=== PATIENT | female | born 1985 | race African-American/Black ===

== ENCOUNTER 2017-03-13 12:09 | Emergency (ER) | payer MEDICAID ==
[~2017-03-13] VITALS: Ht 157.5 cm; Wt 56.8 kg
[2017-03-13] MEDS ORDERED: KETOROLAC 30 MG/ML VIAL (J1885) IV ONE (13:45)
[2017-03-13] MEDS ORDERED: ONDANSETRON 4MG/2ML VIAL (J2405) IV ONE (13:45)
[2017-03-13 14:31] LABS: BASO % 0.8 % (0.0-1.0); EOS # 0.2 K/mm3 (0.0-0.50); EOS % 3.5 % (0.0-3.0); LARGE UNSTAINED CELL # 0.1 K/mm3 (0.0-0.4); LARGE UNSTAINED CELL % 1.9 % (0.0-4.0); LYMPH # 1.9 K/mm3 (1.5-4.5); LYMPH % 32.9 % (24.0-44.0); MEAN CORPUSCULAR HEMOGLOBIN 26.6 pg (27.0-33.0); MEAN CORPUSCULAR HGB CONC 31.6 g/dl (32.0-36.5); MEAN CORPUSCULAR VOLUME 84.2 fl (80.0-96.0); MONO # 0.3 K/mm3 (0.0-0.8); NEUTROPHILS % 54.9 % (36.0-66.0); PLATELET COUNT, AUTOMATED 285 k/mm3 (150-450); RED CELL DISTRIBUTION WIDTH 13.8 % (11.5-14.5); WHITE BLOOD COUNT 5.4 K/mm3 (4.0-10.0)
[2017-03-13 14:36] LABS: CONTROL LINE HCG INT CTR LINE PRESENT
[2017-03-13 14:38] LABS: INR 0.93
[2017-03-13 14:50] LABS: ALBUMIN 4.2 GM/DL (3.2-5.2); ALBUMIN/GLOBULIN RATIO 1.05 (1.00-1.93); ALKALINE PHOSPHATASE 62 U/L (45-117); ALT/SGPT 28 U/L (12-78); AMYLASE 95 U/L (25-115); ANION GAP 5 MEQ/L (8-16); AST/SGOT 21 U/L (15-37); BILIRUBIN,DIRECT 0.1 MG/DL (0.0-0.2); BILIRUBIN,TOTAL 0.4 MG/DL (0.2-1.0); BLOOD UREA NITROGEN 13 MG/DL (7-18); CALCIUM LEVEL 9.3 MG/DL (8.5-10.1); CARBON DIOXIDE LEVEL 30 MEQ/L (21-32); CHLORIDE LEVEL 105 MEQ/L (98-107); CREATININE FOR GFR 0.73 MG/DL (0.55-1.02); GLOMERULAR FILTRATION RATE > 60.0 (>60); GLUCOSE, FASTING 63 MG/DL (70-105); POTASSIUM SERUM 3.5 MEQ/L (3.5-5.1); SODIUM LEVEL 140 MEQ/L (136-145); TOTAL PROTEIN 8.2 GM/DL (6.4-8.2)
[2017-03-13] MEDS ORDERED: ISOVUE-370 76% 100ML VIAL (Q9967) As Ordered ONE (14:53)
[2017-03-13] MEDS ORDERED: ULTR50TA8 PO (15:38)
[2017-03-13 15:42] VITALS: BP 115/82
--- NOTE | 2017-03-13 15:49 | REP ---
CT abdomen and pelvis with IV, but without oral contrast: History: Right and left lower quadrant pain. History of hemangioma in the right abdomen according to the patient. This was biopsied by needle biopsy technique elsewhere. She also gives a history of prior tubal ligation. CT contrast dose: 100 ml of Isovue [address] findings: Preliminary budget director radiograph demonstrates an unremarkable bowel gas pattern. The lung bases are clear. The liver and the spleen are normal in size and homogeneous in texture. No adrenal lesion is seen on either side. Pancreas is unremarkable. The gallbladder is small and contracted, but otherwise unremarkable. The kidneys enhance symmetrically and are morphologically intact. There is a retroaortic left renal vein noted incidentally. Small and large bowel loops are normal in the abdomen and pelvis. There is a large markedly hypervascular soft tissue and fat component containing right retroperitoneal tumor. This measures 20.6 x 12.2 x 12.0 cm. It appears to originate deep to the right psoas muscle displacing the psoas muscle laterally and anteriorly and displacing the left iliac artery and vein medially across the midline. The uterus is displaced to the left, but appears intact. Urinary bladder shows mass effect, but does not appear involved. There is a small quantity of fluid in the cul-de-sac. The lesion does extend into and through the inguinal canal with a small component of the tumor being homogeneously fat density coursing through the mildly distended inguinal canal. There are multiple large caliber enhanced arterial vessels in the lesion with markedly hypervascular parenchymal enhancement developed at the time of the scan. A component of the lesion is fat density material as well. There are a few punctate calcifications in the lesion. Exam is otherwise unremarkable. No bony destructive lesion is seen. A normal appendix is seen in the right lower quadrant. Impression: 20.5 cm highly vascular retroperitoneal mass with fat components. 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 Recommend comparison with prior imaging and review of histologic results from previous biopsy. No other or acute abdominal abnormality. Signed by Jesse Barajas MD 03/13/2017 04:35 P
--- NOTE | 2017-03-17 08:05 | ED PDOC ---
Post-Departure Follow-Up certified letter sent to patient pertaining to radiology report. Makayla Frederick MD Mar 17, 2017 08:05
== END 2017-03-13 15:53 | disposition home or self-care (01) ==
LOC: M ED 12:09
DX: R19.00 Intra-abdominal and pelvic swelling, mass and lump, unspecified site (principal); R10.32 Left lower quadrant pain; Z87.19 Personal history of other diseases of the digestive system; F17.210 Nicotine dependence, cigarettes, uncomplicated
CPT/HCPCS: 74177; 80048; 80076; 81001; 82150; 83690; 84703; 85025; 85610; 85730; 96374; 96375; 99283; J1885; J2405; Q9967

== ENCOUNTER 2018-05-18 05:49 | Emergency (ER) | payer MEDICAID ==
[2018-05-18] MEDS ORDERED: NEOSPORIN OINT 0.9 GM PKT (FLOOR STOCK) As Ordered (06:36)
== END 2018-05-18 06:48 | disposition home or self-care (01) ==
LOC: M ED 05:49
DX: S61.411A Laceration without foreign body of right hand, initial encounter (principal); W26.8XXA Contact with other sharp object(s), not elsewhere classified, initial encounter; Y92.098 Other place in other non-institutional residence as the place of occurrence of the external cause; F17.210 Nicotine dependence, cigarettes, uncomplicated
CPT/HCPCS: 99282

== ENCOUNTER → 2018-12-04 | Outpatient (REF) ==
[~2018-12-04] MED LIST: ACET-683 PO; ACET500T15 PO; BACT2CRE TOP; IBUP-1022 PO; ULTR50TA8 PO
[2018-12-05 10:26] LABS: RUBELLA IgG QUALITATIVE IMMUNE (IMMUNE)
== END ==
LOC: M LAB 11:04
PROVIDERS: ATTEND Nurse Practitioner Adult Health
DX: Z02.89 Encounter for other administrative examinations (principal)

== ENCOUNTER 2019-11-15 16:35 | Emergency (ER) | payer MEDICAID, OTHER ==
[~2019-11-15] VITALS: Ht 157.5 cm; Wt 61.4 kg
[2019-11-15] MEDS ORDERED: sleep aid PO (16:58)
[2019-11-15 17:11] LABS: HEMATOCRIT 38.2 % (36.0-47.0); HEMOGLOBIN 12.1 g/dl (12.0-15.5); MEAN CORPUSCULAR HEMOGLOBIN 25.6 pg (27.0-33.0); MEAN CORPUSCULAR HGB CONC 31.7 g/dl (32.0-36.5); MEAN CORPUSCULAR VOLUME 80.8 fl (80.0-96.0); PLATELET COUNT, AUTOMATED 325 10^3/uL (150-450); RED BLOOD COUNT 4.73 10^6/uL (4.00-5.40); WHITE BLOOD COUNT 5.1 10^3/uL (4.0-10.0)
[2019-11-15 17:34] LABS: ACETAMINOPHEN LEVEL < 2.0 UG/ML (10.0-30.0); ALBUMIN 3.9 GM/DL (3.2-5.2); ALT/SGPT 21 U/L (12-78); BILIRUBIN,DIRECT 0.1 MG/DL (0.0-0.2); BILIRUBIN,TOTAL 0.3 MG/DL (0.2-1.0); BLOOD UREA NITROGEN 8 MG/DL (7-18); CALCIUM LEVEL 8.4 MG/DL (8.5-10.1); CARBON DIOXIDE LEVEL 28 MEQ/L (21-32); CHLORIDE LEVEL 109 MEQ/L (98-107); CREATININE FOR GFR 0.85 MG/DL (0.55-1.30); GLOMERULAR FILTRATION RATE > 60.0 (>60); GLUCOSE, FASTING 96 MG/DL (70-100); POTASSIUM SERUM 3.7 MEQ/L (3.5-5.1); SALICYLATE LEVEL 2.3 MG/DL (5.0-30.0); SODIUM LEVEL 141 MEQ/L (136-145); THYROID STIMULATING HORMONE 0.343 uIU/ML (0.358-3.740); TOTAL PROTEIN 7.9 GM/DL (6.4-8.2)
[2019-11-15 17:55] LABS: AMPHETAMINES LEVEL URINE NEGATIVE (NEGATIVE); BARBITURATES URINE NEGATIVE (NEGATIVE); BENZODIAZEPINES URINE NEGATIVE (NEGATIVE); CANNABINOIDS URINE NEGATIVE (NEGATIVE); COCAINE METABOLITE URINE NEGATIVE (NEGATIVE); METHADONE URINE NEGATIVE (NEGATIVE); OPIATES URINE NEGATIVE (NEGATIVE); PHENCYCLIDINE URINE NEGATIVE (NEGATIVE)
[2019-11-15 19:55] VITALS: BP 123/76
== END 2019-11-15 19:54 | disposition home or self-care (01) ==
LOC: M ED 16:35
DX: F10.129 Alcohol abuse with intoxication, unspecified (principal)
CPT/HCPCS: 80048; 80076; 80307; 84443; 85027; 99284; G0480